=== PATIENT | female | born 1950 | race African-American/Black ===

== ENCOUNTER 2021-03-03 23:27 | Emergency (ER) | payer MEDICARE, MEDICAID ==
[~2021-03-03] VITALS: Ht 162.6 cm; Wt 54.0 kg
[~2021-03-03 23:27] MED LIST: ALPR2TAB2 PO; CLOP75TA4; DOCU-138 PO; LACT10SO30 PO; METH40TA12 PO; PARO-66 PO; PHEN100C4 PO; VIC PO; ZOLP10TA2 PO
[2021-03-03] MEDS ORDERED: SODIUM CHLORIDE 0.9% 1,000 ML IV ONE (23:45)
[2021-03-03] MEDS ORDERED: METOCLOPRAMIDE HCL 10MG/2ML VIAL IV ONE (23:45)
[2021-03-04 01:14] LABS: BASOPHILS % 0.1 % (0.0-2.0); HEMATOCRIT. 32.8 % (36.0-48.0); HEMOGLOBIN. 11.3 g/dL (12.0-16.0); LYMPHOCYTES % 29.1 % (20.0-50.0); MEAN CORPUSCULAR HEMOGLOBIN 31.9 pg (28.0-32.0); MEAN PLATELET VOLUME 7.1 fl (7.4-10.4); MONOCYTES % 8.1 % (2.0-8.0); NEUTROPHILS % 62.7 % (40.0-76.0); PLATELET 147 x1000/uL (130-400); RED BLOOD CELL COUNT 3.53 mill/uL (4.2-5.4); RED CELL DISTRIBUTION WIDTH 13.3 % (11.6-14.6)
[2021-03-04] MEDS ORDERED: MORPHINE SULFATE 4 MG/ML CPJ (NOT FOR IM USE) IV ONE (01:15)
[2021-03-04 01:32] LABS: CHLORIDE 106 mEq/L (98-107)
[2021-03-04 01:38] LABS: TOTAL IRON BINDING CAPACITY 385 ug/dL (250-450)
[2021-03-04 01:46] LABS: INR 1.1; PROTHROMBIN TIME 11.5 sec (9.6-11.0)
[2021-03-04] MEDS ORDERED: METH-611 MT ×2 (02:14→02:19)
[2021-03-04 02:30] VITALS: BP 145/72
[2021-03-04 02:46] LABS: CLARITY URINE CLEAR (CLEAR); COLOR URINE YELLOW (YELLOW); KETONES URINE NEGATIVE (NEGATIVE); LEUKOCYTE ESTERASE URINE NEGATIVE (NEGATIVE); NITRITE URINE NEGATIVE (NEGATIVE); OCCULT BLOOD URINE NEGATIVE (NEGATIVE); PH URINE 7.5 (4.5-8.0); PROTEIN URINE NEGATIVE (NEGATIVE); SPECIFIC GRAVITY URINE 1.006 (1.005-1.030); UROBILINOGEN URINE 0.2 E.U./dL (0.2-1.0)
== END 2021-03-04 02:30 | disposition home or self-care (01) ==
LOC: ER 23:27
DX: F11.23 Opioid dependence with withdrawal (principal); I25.2 Old myocardial infarction; I10 Essential (primary) hypertension; Z88.5 Allergy status to narcotic agent; Z88.8 Allergy status to other drugs, medicaments and biological substances; Z88.6 Allergy status to analgesic agent; Z79.899 Other long term (current) drug therapy; Z86.59 Personal history of other mental and behavioral disorders
CPT/HCPCS: 36415; 74176; 80053; 81003; 83540; 83550; 83605; 83690; 85025; 85610; 86850; 86900; 86901; 93005; 96361; 96374; 96375; 99285; J2270; J2765; J7030

== ENCOUNTER 2022-02-23 23:23 | Emergency (ER) | payer MEDICARE, MEDICAID ==
[~2022-02-23] VITALS: Ht 165.1 cm; Wt 50.0 kg
[~2022-02-23 23:23] MED LIST changes: +CLOP-31; -CLOP75TA4; +METH-819 MT
[2022-02-24] MEDS ORDERED: HYDROCODONE/ACETAMINOPHEN 10/325MG TABLET PO ONE
[2022-02-24 00:37] VITALS: BP 148/88
== END 2022-02-24 00:47 | disposition home or self-care (01) ==
LOC: ER 23:23
DX: M79.604 Pain in right leg (principal); M79.605 Pain in left leg; G89.29 Other chronic pain; I10 Essential (primary) hypertension; Z85.6 Personal history of leukemia; Z79.899 Other long term (current) drug therapy
CPT/HCPCS: 99283

== ENCOUNTER 2022-09-05 22:23 | Emergency (ER) | payer MEDICARE, MEDICAID ==
[~2022-09-05] VITALS: Ht 162.6 cm; Wt 55.0 kg
[~2022-09-05 22:23] MED LIST changes: +ACET-2708 PO
[2022-09-06] MEDS ORDERED: ONDANSETRON HCL 4MG/2ML INJ IV STA (00:11)
[2022-09-06] MEDS ORDERED: MORPHINE SULFATE 4 MG/ML CPJ (NOT FOR IM USE) IV STA ×2 (00:11→03:19)
[2022-09-06] MEDS ORDERED: SODIUM CHLORIDE 0.9% 1,000 ML IV ONE (00:15)
[2022-09-06 01:02] LABS: HEMATOCRIT. 33.4 % (36.0-48.0); HEMOGLOBIN. 11.2 g/dL (12.0-16.0); LYMPHOCYTES % 35.9 % (20.0-50.0); MEAN CORPUSCULAR HEMOGLOBIN 31.2 pg (28.0-32.0); MEAN CORPUSCULAR VOLUME 92.6 fL (81.0-99.0); MEAN PLATELET VOLUME 6.8 fl (7.4-10.4); MONOCYTES % 6.1 % (2.0-8.0); PLATELET 153 x1000/uL (130-400); RED CELL DISTRIBUTION WIDTH 13.4 % (11.6-14.6)
[2022-09-06 01:26] LABS: CHLORIDE 106 mEq/L (98-107)
[2022-09-06] MEDS ORDERED: ONDANSETRON HCL 4MG/2ML INJ IV NR (03:30)
[2022-09-06] MEDS ORDERED: ONDANSETRON HCL 4MG/2ML INJ IV PRN (03:45)
[2022-09-06] MEDS ORDERED: ACETAMINOPHEN 325MG TABLET PO PRN ×2 (03:45)
[2022-09-06] MEDS ORDERED: MAGNESIUM/ALUMINUM HYDROXIDE/SIMETHICONE 30ML UDC PO PRN (03:45)
[2022-09-06] MEDS ORDERED: CLONIDINE 0.1MG TABLET PO PRN (03:45)
[2022-09-06] MEDS ORDERED: LORAZEPAM 2MG/ML CPJ IV PRN (03:45)
[2022-09-06] MEDS ORDERED: IPRATROPIUM/ALBUTEROL 0.5-3(2.5)MG/3ML NEB NEB PRN (03:45)
[2022-09-06 04:00] VITALS: BP 180/72
[2022-09-06] MEDS ORDERED: NON FORMULARY PATIENT HOME MED XX SCH (04:30)
[2022-09-06] MEDS ORDERED: IPRATROPIUM BROMIDE (0.02%) 0.5MG/2.5ML NEB HHN PRN (04:45)
[2022-09-06] MEDS ORDERED: ALBUTEROL (0.083%) 2.5MG/3ML NEB HHN PRN (04:45)
[2022-09-06] MEDS ORDERED: SODIUM CHLORIDE 0.45% 1,000 ML IV SCH (05:00)
[2022-09-06 05:24] LABS: HEMATOCRIT. 34.2 % (36.0-48.0); HEMOGLOBIN. 11.4 g/dL (12.0-16.0); LYMPHOCYTES % 30.6 % (20.0-50.0); MEAN CORPUSCULAR HEMOGLOBIN 30.9 pg (28.0-32.0); MEAN CORPUSCULAR VOLUME 92.7 fL (81.0-99.0); MEAN PLATELET VOLUME 7.5 fl (7.4-10.4); MONOCYTES % 7.3 % (2.0-8.0); NEUTROPHILS % 62.1 % (40.0-76.0); PLATELET 135 x1000/uL (130-400); RED BLOOD CELL COUNT 3.69 mill/uL (4.2-5.4); RED CELL DISTRIBUTION WIDTH 13.5 % (11.6-14.6)
[2022-09-06 05:36] LABS: CHLORIDE 107 mEq/L (98-107)
[2022-09-06 05:50] LABS: HDL CHOLESTEROL 96 mg/dL (40-59); LDL CHOLESTEROL 85 mg/dL (5-100); T4 FREE 1.01 ng/dL (0.76-1.46)
[2022-09-06] MEDS ORDERED: PHENYTOIN SODIUM EXTENDED 100MG CAPSULE PO SCH (06:00)
[2022-09-06] MEDS ORDERED: AMLODIPINE 5MG TABLET PO SCH (09:00)
[2022-09-06] MEDS ORDERED: ENOXAPARIN 40MG/0.4ML SYR SUBCUT SCH (09:00)
[2022-09-06] MEDS ORDERED: AMITRIPTYLINE 50MG TABLET PO SCH (09:00)
[2022-09-06] MEDS ORDERED: METHADONE HCL 10MG TABLET PO SCH (09:00)
[2022-09-06] MEDS ORDERED: FAMOTIDINE 20MG/2ML VIAL IV SCH (09:00)
[2022-09-06] MEDS ORDERED: ATORVASTATIN CALCIUM 40MG TABLET PO SCH (21:00)
== END 2022-09-06 05:10 | disposition left against medical advice (07) ==
LOC: ER 22:23
DX: F11.23 Opioid dependence with withdrawal (principal); I47.20 Ventricular tachycardia, unspecified; D64.9 Anemia, unspecified; R56.9 Unspecified convulsions; I10 Essential (primary) hypertension; Z85.9 Personal history of malignant neoplasm, unspecified; Z88.5 Allergy status to narcotic agent; Z88.6 Allergy status to analgesic agent; Z88.8 Allergy status to other drugs, medicaments and biological substances
CPT/HCPCS: 36415; 71045; 80053; 80061; 80320; 83036; 83690; 83735; 84439; 84443; 84484; 85025; 93005; 99291; J2060; J2270; J2405; J7030; G0480